=== PATIENT | female | born 1995 | race Two or more races ===

== ENCOUNTER 2025-08-30 07:52 | Outpatient (RCR) | payer MEDICAID, SELFPAY ==
--- NOTE | 2025-08-30 08:00 | XR_ITS ---
Examination: FRANSISCA, hepatobiliary radioisotope scan Gallbladder ejection fraction study. Date and time of exam: August 30, 2025, 0434 hours INDICATIONS: Vomiting abdominal pain 3 years Technique: 5.6 mCi of 99M Hepatolite administered. Serial imaging then obtained from immediate through 60 minutes. 1.4 mcg selective catheter Kinevac administered for gallbladder ejection fraction study. Findings: Radioisotope activity within the liver is reasonably homogenous. Gallbladder, common bile duct small bowel activity noted Impression: Gallbladder activity Normal gallbladder ejection fraction 44% normal greater than 35%
[2025-08-30 08:26] LABS: HCG Qualitative,Urine Negative
== END 2025-09-04 23:59 | disposition home or self-care (01) ==
LOC: SNUC 07:52
PROVIDERS: PCP Physician Assistant; Referring Provider Physician Assistant; Visit Provider Physician Assistant
DX: R93.2 Abnormal findings on diagnostic imaging of liver and biliary tract (principal); Z32.00 Encounter for pregnancy test, result unknown
CPT/HCPCS: 78227; 81025; A9537; J2805